=== PATIENT | female | born 1965 | race Caucasian/White ===

== ENCOUNTER 2017-04-16 21:42 | Emergency (ER) | payer MEDICAID ==
[~2017-04-16 21:42] MED LIST: ATIVAN-DPS0.5 MG PO; MULTIVITAMINS1 EAC1 PO; NORCO 5-325 TA1 EACH PO; POTASSIUM99 M1 PO; VITAMIN B1100 MG PO
--- NOTE | 2017-04-19 13:14 | ER ---
ADMIT: 04/16/2017 RM/LOC: ER [facility] MR#: [id number] [id number] [place], [place] [id number] JARETT RENETTAJAMEEL Carie [address] [address] Emergency Room Report SEX: F AGE: 51 : 1965 DATE: 04/16/2017 HISTORY OF PRESENT ILLNESS: The patient is a 51-year-old female, who was at a store trying to walk through the parking lot, tripped on concrete and fell straight down. She complained of left and right knee pain, but she has a more advanced abrasion in her left knee. Her vitals are within normal limits. She does have some issues with anxiety, dental abscess and appendectomy, CVA x2, and possibly chronic pain. MEDICATIONS: She takes: 1. Meloxicam. 2. Lyrica. 3. Lorazepam. 4. Citalopram. 5. Amoxil. SOCIAL HISTORY: She is a smoker and is a recovering alcoholic. IMAGING DATA: X-ray does show a patella fracture, not dislocated. EMERGENCY DEPARTMENT COURSE: The patient was put in an immobilizer. Given Tdap. Given a shot of Toradol and advised to follow up with PCP or Dr. K[facility], for further evaluation and care. ANIYAH Guevara / Shin Navarro MD / kanchanl JOB #: [id number] CC: Shin Navarro MD, Attending Physician Dagmar Gibbs APRN, SILK BLOCKER-C, Family Physician
== END 2017-04-16 23:00 | disposition home or self-care (01) ==
LOC: ER 21:42
PROC: 2W3RX1Z Immobilization of Left Lower Leg using Splint (ICD-10-PCS; principal; 2017-04-16)
DX: S82.002A Unspecified fracture of left patella, initial encounter for closed fracture (principal); S80.01XA Contusion of right knee, initial encounter; F41.9 Anxiety disorder, unspecified; F17.200 Nicotine dependence, unspecified, uncomplicated; Z23 Encounter for immunization; Z90.49 Acquired absence of other specified parts of digestive tract; Z86.73 Personal history of transient ischemic attack (TIA), and cerebral infarction without residual deficits; Z79.899 Other long term (current) drug therapy; W18.09XA Striking against other object with subsequent fall, initial encounter; Y92.481 Parking lot as the place of occurrence of the external cause